=== PATIENT | male | born 1965 | race Caucasian/White ===

== ENCOUNTER 2016-10-24 08:11 | Inpatient (IN) | payer BC, OTHER ==
[~2016-10-24] VITALS: Ht 170.2 cm; Wt 77.1 kg
--- NOTE | 2016-10-24 11:26 | NUR ---
Intake Assessment; Patient is a 51 year old male, AOX4, presented to [facility] to detoxify from ETOH/Benzodiazepine. Patient is from [place] and arrived at intake office at approximately 1100. He is the primary source of information. Patient is admitted under the care of Dr. So. Patient's vital signs are as follows; BP 114/65, HR 53, Respirations 18, Spo2 95% on room air, temperature of 96.8, denies pain at this time. Patient's height is 5'7 and weight of 175 noted. Patient reported that he is allergic to Levaquin. Patient brought in home medications. Patient appears slightly nervous with flushed face. Educated patient regarding unit policies and protocols, patient verbalized understanding. Dr. So to evaluate patient at this time. Will continue with further nursing admission assessment when patient is up on the unit.
[2016-10-24] MEDS ORDERED: FAMO20TA8 PO (11:27)
[2016-10-24] MEDS ORDERED: ESCI10TA55 PO (11:27)
[2016-10-24] MEDS ORDERED: LEVO25TA9 PO (11:27)
[2016-10-24] MEDS ORDERED: CLOB15CR4 TP (11:28)
[2016-10-24] MEDS ORDERED: ADAL40PE SUBCUT (11:45)
[2016-10-24] MEDS ORDERED: DICYCLOMINE HCL 20 MG TABLET PO PRN (12:00)
[2016-10-24] MEDS ORDERED: CLONIDINE HCL 0.1 MG TABLET PO PRN (12:00)
[2016-10-24] MEDS ORDERED: ONDANSETRON ODT 4 MG TAB.RAPDIS SL PRN (12:00)
[2016-10-24] MEDS ORDERED: ONDANSETRON 4 MG/2 ML VIAL IM PRN (12:00)
[2016-10-24] MEDS ORDERED: MAG HYDROX/AL HYDROX/SIMETH 30 ML LIQUID UDC PO PRN (12:00)
[2016-10-24] MEDS ORDERED: MAGNESIUM HYDROXIDE 30 ML LIQUID UDC PO PRN (12:00)
[2016-10-24] MEDS ORDERED: THIAMINE HCL 200 MG/2 ML VIAL IM ONE (12:00)
[2016-10-24] MEDS ORDERED: LORAZEPAM 2 MG/1 ML VIAL IM PRN (12:00)
[2016-10-24] MEDS ORDERED: LOPERAMIDE HCL 2 MG CAPSULE PO PRN ×2 (12:00)
[2016-10-24] MEDS ORDERED: diphenhydrAMINE 50 MG CAPSULE PO PRN (12:00)
[2016-10-24] MEDS ORDERED: HYDROXYZINE PAMOATE 25 MG CAPSULE PO PRN (12:00)
[2016-10-24] MEDS ORDERED: LORAZEPAM 1 MG TABLET PO PRN ×2 (12:00)
[2016-10-24] MEDS ORDERED: MIRALAX 17 GM POWD.PACK PO PRN (12:00)
--- NOTE | 2016-10-24 12:00 | NUR ---
Admission note; Patient is a 51 year old male, AOX4, presented to [facility] to detoxify from ETOH/Benzodiazepine. Patient is from [place] and arrived at intake office at approximately 1100. He is the primary source of information. Patient is admitted under the care of Dr. So. Patient's vital signs are as follows; BP 114/65, HR 53, Respirations 18, Spo2 95% on room air, temperature of 96.8, denies pain at this time. Patient's height is 5'7 and weight of 175 lbs noted. Patient reported that he is allergic to Levaquin. Patient brought in home medications (Famotidine, Humira Pen, triple ATB, Levothyroxine). Patient appears nervous with flushed face with moist palms, tremors to touch. Educated patient regarding unit policies and protocols, patient verbalized understanding. Patient denies history of seizures. Discussed substance use history. Patient was diagnosed with anxiety 5 months ago and was prescribed Xanax 1mg BID, patient has been taking a total of 2mg PO daily for 5 months , last used 10/24/16 early in the morning. Patient also reported drinking ETOH on an occasional basis only, last consumed ETOH on 09/29/16 approximately half a bottle of Tequila. Discussed medical and psych history. Patient reported that he was diagnosed with Psoriasis 12 years ago, Hypothyroidism 8 months ago, gall bladder surgery 5 years ago, gastric 2 years ago, right leg surgery in the 's and anxiety 5 months ago. Patient lives with son in [place]. Patient has been to [facility]. Patient's primary care physician is Dr. Pardo and psychologist is Dr. Kaye. Skin check done with no significant findings. Dr. So made aware of patient's current condition. Patient oriented to unit by MUSICIAN [employer]. Safety measures in place. Will continue to monitor patient.
[2016-10-24 12:23] LABS: *AMPHETAMINE, URINE NEGATIVE (NEGATIVE); *BARBITURATE, URINE NEGATIVE (NEGATIVE); *CANNABINOID, URINE NEGATIVE (NEGATIVE); *COCCAINE, URINE NEGATIVE (NEGATIVE); *OPIATE, URINE NEGATIVE (NEGATIVE); *PHENCYCLIDINE SCREEN,URINE NEGATIVE (NEGATIVE)
[2016-10-24] MEDS: LORAZEPAM 1 MG TABLET PO SCH ×3 (12:38→21:00)
[2016-10-24 13:36] LABS: BASOPHILS % (AUTO) 0.9 % (0.0-2.0); EOSINOPHILS # (AUTO) 0.1 K/uL (0.0-0.7); EOSINOPHILS % (AUTO) 2.5 % (0.0-7.0); HEMATOCRIT 38.9 % (40-50); HEMOGLOBIN 13.3 G/DL (14.0-18.0); LYMPHOCYTES # (AUTO) 1.8 K/UL (0.8-4.8); LYMPHOCYTES % (AUTO) 38.8 % (20.5-51.5); MEAN CORPUSCULAR HEMOGLOBIN 32.9 UUG (27.0-31.0); MEAN CORPUSCULAR HGB CONC 34 g/dL (32.0-37.0); MEAN CORPUSCULAR VOLUME 96.2 FL (82.0-92.0); MONOCYTES # (AUTO) 0.4 K/UL (0.1-1.30); MONOCYTES % (AUTO) 8.3 % (0.0-11.0); NEUTROPHILS # (AUTO) 2.3 K/UL (1.8-8.9); NEUTROPHILS % (AUTO) 49.5 % (38.5-71.5); RED BLOOD CELL COUNT(AUTO) 4.05 MIL/UL (4.7-6.1); WHITE BLOOD COUNT (AUTO) 4.6 K/UL (4.0-11.2)
[2016-10-24 13:42] LABS: ALANINE AMINOTRANSFERASE 46 U/L (16-63); ALKALINE PHOSPHATASE 53 U/L (50-136); ASPARTATE AMINOTRANSFERASE 40 U/L (15-37); BILIRUBIN,TOTAL 0.3 mg/dL (0.2-1.0); CARBON DIOXIDE 28 mmol/L (21-32); CHLORIDE 106 mmol/L (98-107); CREATININE 0.7 mg/dL (0.6-1.3); GLUCOSE 75 mg/dL (74-106); MAGNESIUM 2.1 mg/dL (1.8-2.4); TOTAL PROTEIN, SERUM 7.8 g/dL (6.4-8.2); UREA NITROGEN, BLOOD 20 mg/dL (7-18)
[2016-10-24 13:52] LABS: THYROID STIMULATING HORMONE 1.523 mIU/mL (0.358-3.740)
[2016-10-24 13:58] LABS: PLATELET COUNT (AUTO) 168 K/UL (150-450)
[2016-10-24 14:01] LABS: ETHANOL < 3 MG/DL (0-0)
--- NOTE | 2016-10-24 14:49 | NUR ---
Clinician encouraged client to attend the 3:30 group and client responded that he would do so.
[2016-10-24 16:00] VITALS: BP 118/62
[2016-10-24] MEDS: CLOBETASOL PROPIONATE 0.05% OINT 15 GM TUBE TOP SCH (16:37)
[2016-10-24] MEDS: FAMOTIDINE 20 MG TABLET PO SCH (16:37)
[2016-10-24] MEDS ORDERED: CLOBETASOL PROPIONATE 0.05% CREAM 15 GM TUBE TP SCH (17:00)
--- NOTE | 2016-10-24 18:25 | NUR ---
End of shift note; Patient is AOX4. Patient was seen and evaluated by MD. Patient was started on a 4 day Ativan taper, no adverse reactions noted. Patient remained compliant with treatment plan. Medications were effective in reducing withdrawal symptoms. Met all needs.
--- NOTE | 2016-10-24 19:15 | NUR ---
Start of Shift Note: Patient is a 51 y/o male admitted today 10/24/16 for Benzo dependence. Patient uses Xanax 2mg daily for 5 months. Patient with medical history of Psoriasis, Hypothyroidism, Gall Bladder surgery, Gastric Bypass, Anxiety, and right left surgery in the 90s. Patient with no seizure history. Patient is on a regular diet with no known food and drug allergies. Full Code status. Patient started today on a 4-day Ativan taper. Skin noted to be intact. Last CIWA 6. No PRN medications given during day shift. Patient is alert & oriented x4. No shortness of breath noted. Respiration even & unlabored. Abdomen soft & non-distended. No nausea noted. Patient complains of 5/10 generalized muscle aches. Patient denies headache. No hallucinations noted. Bilateral hand tremors felt. Safety precautions are in place. Bed locked in lowest position. Both side rails up. Call light within pts reach. Will continue to monitor patient.
[2016-10-24 20:00] VITALS: BP 102/49
[2016-10-24 21:15] VITALS: BP 99/62
[2016-10-24] MEDS: IBUPROFEN 600 MG TABLET PO PRN (21:38)
--- NOTE | 2016-10-24 21:38 | NUR ---
PRN Motrin Patient complains of 5/10 generalized muscle aches. Facial grimacing noted. PRn motrin administered as ordered. Will reassess in 1 hour. Will continue to monitor patient.
--- NOTE | 2016-10-24 22:38 | NUR ---
PRN Reassessment Patient asleep in bed with no facial grimacing noted. Patient appears calm and comfortable. No s/s of distress noted. Safety measures in place. Will continue to monitor patient.
[2016-10-25] VITALS: BP 115/68
[2016-10-25 02:21] VITALS: BP 126/82
--- NOTE | 2016-10-25 02:25 | NUR ---
PRN Administration Patient awake at this time and complains anxiety & mild headache. Patient denies nausea at this time. Patient noted with bilateral hand tremors. Patient denies hallucinations. Vitals taken and WNL. CIWA 7 noted. PRN Ativan administered as ordered. Will reassess in 1 hour. Will continue to monitor.
[2016-10-25] MEDS: ACETAMINOPHEN 325 MG TABLET PO PRN (02:26)
--- NOTE | 2016-10-25 02:52 | NUR ---
Patient reported that he noted multiple small red bumps on his right flank. Patient denies itchiness, pain or discomfort at site. Will continue to monitor.
--- NOTE | 2016-10-25 03:25 | NUR ---
PRN Reassessment Patient verbalized relief from headache and decrease in anxiety. Bilateral hand tremors felt. CIWA 4 noted at this. Safety measures in place. Will continue to monitor patient.
[2016-10-25] MEDS: LEVOTHYROXINE SODIUM 25 MCG TABLET PO SCH (06:05)
--- NOTE | 2016-10-25 07:25 | NUR ---
End of Shift Note: Patient had an uneventful night. Patient was started on a Ativan taper yesterday. Patient was given PRN Motrin and Ativan during my shift and was effective. Pt reported that taper medication is effective in decreasing symptoms of withdrawal from CIWA 7 to 4. Pt remained stable and vitals remains WNL. Pt is compliant with medications and treatment plan. Pt was able to sleep for a total of 4 hours. Pt consumed 1200ml of fluids. Voided 5x with no bowel movement. All needs attended & met. Safety measures in place. Will endorse pt to day shift nurse.
--- NOTE | 2016-10-25 07:48 | NUR ---
BEGINNING OF SHIFT Patient endorsement report received from rotary shear cutter nurse, all pertinent information discussed. patient with admitting Dx: BZO dependence. Patient currently with ongoing 4 day Ativan taper as ordered, well tolerated, no ASE noted. patient currently on day 2 of taper. Patient admitted on the: 10/24/2016. As per rotary shear cutter patient slept for 4 hours, received PRN: Motrin and Ativan, as per rotary shear cutter medication effective. Patient with last cow score of: 5, and last ciwa score of: 3. Patient received in bed with eyes closed, respirations even and unlabored, responsive to verbal stimuli, educated patient regarding plan of care for the day and medication regimen with good verbal understanding. safety measures in place. will continue to monitor.
[2016-10-25 08:04] VITALS: BP 114/67
[2016-10-25 08:06] LABS: HEPATITIS B SURFACE AG Negative (Negative)
[2016-10-25] MEDS: DOCUSATE SODIUM 250 MG CAPSULE PO SCH (09:00)
[2016-10-25] MEDS ORDERED: TUBERCULIN,PURIF.PROT.DERIV. 5 TU/0.1 ML TEST ID ONE (09:00)
[2016-10-25] MEDS: MULTIVITAMINS,THERAPEUTIC TABLET PO SCH (09:13)
[2016-10-25] MEDS: FAMOTIDINE 20 MG TABLET PO SCH ×2 (09:13→17:00)
[2016-10-25] MEDS: LORAZEPAM 1 MG TABLET PO SCH ×4 (09:13→21:09)
[2016-10-25] MEDS: THIAMINE HCL 100 MG TABLET PO SCH (09:13)
[2016-10-25] MEDS: FOLIC ACID 1 MG TABLET PO SCH (09:13)
[2016-10-25] MEDS: CLOBETASOL PROPIONATE 0.05% OINT 15 GM TUBE TOP SCH ×2 (09:18→17:00)
[2016-10-25 12:45] VITALS: BP 110/61
[2016-10-25] MEDS: ESCITALOPRAM OXALATE 10 MG TABLET PO SCH (15:21)
[2016-10-25 17:01] VITALS: BP 125/79
--- NOTE | 2016-10-25 19:10 | NUR ---
END OF SHIFT Patient alert and oriented x4, vital signs stable during shift. Patient with admitting Dx: Opiate/Etoh Dependence. Patient with ongoing 4 day Ativan taper as ordered,w ell tolerated, no ASE noted. Patient currently on day 2 of taper, well tolerated, no ASE noted. Patients 0900 assessment patient presented with: anxiety and agitation with ciwa score of: 7; 1300 assessment patient presented with: decrease in anxiety and agitation with ciwa score of: 5; 1700 assessment patient presented with: decrease in anxiety and decrease in agitation with cow score of: 3 and ciwa score of: 3. No PRN medications were administered during shift. Patient was administered PPD to left f/a as ordered, to be read in 48 hours, procedure well tolerated. Patient encouraged adequate PO fluid intake as tolerated. Encouraged to attend group therapies/sessions to learn new coping skills to prevent relapse, denies any SI/HI. Safety measures in place. call light kept with in reach. all needs met and rendered. patient endorsed to shift leader nurse, all pertinent information discussed.
--- NOTE | 2016-10-25 19:15 | NUR ---
Start of Shift Note: Patient is a 51 y/o male admitted today 10/24/16 for Benzo dependence. Patient uses Xanax 2mg daily for 5 months. Patient with medical history of Psoriasis, Hypothyroidism, Gall Bladder surgery, Gastric Sleeve, Anxiety, and right left surgery in the 90s. Patient with no seizure history. Patient is on a regular diet with no known food and drug allergies. Full Code status. Patient is on a 4-day Ativan taper and tolerating well. Last CIWA 3. No PRN medications given during day shift. Pt has small multiple red bumps on right flank and MD is aware. Patient is alert & oriented x4. Patient is ambulatory with a steady gait. No shortness of breath noted. Respiration even & unlabored. Abdomen soft & non-distended. No nausea noted. Patient complains of mild headache. No hallucinations noted. Bilateral hand tremors felt. Safety precautions are in place. Bed locked in lowest position. Both side rails up. Call light within pts reach. Will continue to monitor patient.
[2016-10-25 20:00] VITALS: BP 123/68
[2016-10-25] MEDS: IBUPROFEN 600 MG TABLET PO PRN (21:08)
[2016-10-25] MEDS: TRAZODONE 100 MG TABLET PO SCH (21:08)
--- NOTE | 2016-10-25 21:08 | NUR ---
PRN Motrin Patient complains of mild headache. PRN Motrin administered as ordered. Will reassess in 1 hour. Will continue to monitor patient.
--- NOTE | 2016-10-25 22:08 | NUR ---
PRN Reassessment Patient verbalized relief from headache. No facial grimacing noted. Patient lying in bed and appears comfortable. No s/s of distress noted. Will continue to monitor patient.
[2016-10-26] VITALS: BP 117/68
[2016-10-26 04:00] VITALS: BP 123/91
[2016-10-26] MEDS: LEVOTHYROXINE SODIUM 25 MCG TABLET PO SCH (06:43)
--- NOTE | 2016-10-26 07:20 | NUR ---
End of Shift Note: Patient had an uneventful night. Patient is alert & oriented x4. Patient continues on Ativan taper. Patient was given PRN Motrin during my shift and was effective. Pt reported that taper medication is effective in decreasing symptoms of withdrawal. Pt remained stable and vitals remains WNL. Pt is compliant with medications and treatment plan. Pt was able to sleep for a total of 8 hours. Pt consumed 500 ml of fluids. Voided 1x with no bowel movement. All needs attended & met. Safety measures in place. Will endorse pt to day shift nurse.
--- NOTE | 2016-10-26 07:27 | NUR ---
BEGINNING OF SHIFT Patient endorsement report received from maintenance technician 2nd shift nurse, all pertinent information discussed. patient with admitting Dx: BZO dependence. Patient currently with ongoing 4 day Ativan taper as ordered, well tolerated, no ASE noted. patient currently on day 3 of taper. Patient admitted on the: 10/24/2016. As per maintenance technician 2nd shift patient slept for 6 hours, received PRN: Trazodone, as per maintenance technician 2nd shift medication effective. Patient with last and last ciwa score of: 3. Patient received awake, alert and oriented x4, educated patient regarding plan of care for the day and medication regimen with good verbal understanding. safety measures in place. will continue to monitor.
[2016-10-26 08:45] VITALS: BP 115/56
[2016-10-26] MEDS: THIAMINE HCL 100 MG TABLET PO SCH (08:53)
[2016-10-26] MEDS: LORAZEPAM 1 MG TABLET PO SCH ×3 (08:53→20:34)
[2016-10-26] MEDS: MULTIVITAMINS,THERAPEUTIC TABLET PO SCH (08:53)
[2016-10-26] MEDS: CLOBETASOL PROPIONATE 0.05% OINT 15 GM TUBE TOP SCH ×2 (08:53→16:55)
[2016-10-26] MEDS: FAMOTIDINE 20 MG TABLET PO SCH ×2 (08:53→16:55)
[2016-10-26] MEDS: DOCUSATE SODIUM 250 MG CAPSULE PO SCH (08:53)
[2016-10-26] MEDS: GABAPENTIN 300 MG CAPSULE PO SCH ×3 (08:53→20:34)
[2016-10-26] MEDS: ESCITALOPRAM OXALATE 10 MG TABLET PO SCH (08:53)
[2016-10-26] MEDS: FOLIC ACID 1 MG TABLET PO SCH (08:53)
[2016-10-26 13:55] VITALS: BP 112/55
[2016-10-26 17:48] VITALS: BP 117/71
--- NOTE | 2016-10-26 19:00 | NUR ---
START OF SHIFT NOTE : Patient is 51 years old male , with admitting Dx: BZO dependence. Patient currently with ongoing 4 day Ativan taper as ordered, well tolerated, no ASE noted. Patient admitted on the: 10/24/2016. Patient with last and last ciwa score of: 2 at 16:00. Patient received awake, alert and oriented x4, educated patient regarding plan of care for the day and medication regimen with good verbal understanding. Safety measures in place : bed on lowest position with side rails x2 up for safety, call light within reach. Will continue to monitor closely and offer help.
--- NOTE | 2016-10-26 19:00 | NUR ---
END OF SHIFT Patient alert and oriented x4, vital signs stable during shift. Patient with admitting Dx: Opiate/Etoh Dependence. Patient with ongoing 4 day Ativan taper as ordered,w ell tolerated, no ASE noted. Patient currently on day 3 of taper, well tolerated, no ASE noted. Patients 0900 assessment patient presented with: tremors that can be felt but not seen, barely sweating, mild anxiety and mild agitation with ciwa score of: 5; 1300 assessment patient presented with: tremors that can be felt, barely sweating, mild anxiety and mild agitation with ciwa score of: 5; 1700 assessment patient presented with: mild anxiety and tremors that can be felt with ciwa score of: 2. Detox medication effective at reducing withdrawal symptoms. No PRN medications were administered during shift. Patient encouraged adequate PO fluid intake as tolerated. Encouraged to attend group therapies/sessions to learn new coping skills to prevent relapse, denies any SI/HI. Safety measures in place. call light kept with in reach. all needs met and rendered. patient endorsed to overnight associate nurse, all pertinent information discussed.
[2016-10-26 20:00] VITALS: BP 124/77
[2016-10-26] MEDS: TRAZODONE 100 MG TABLET PO SCH (20:34)
--- NOTE | 2016-10-27 03:00 | NUR ---
PRN MOTRIN Pt. complains of headache pain 11/03. PRN MOTRIN given as ordered. All safety measures in place per hospital policy. Bed in lowest position, side rails up x2, call-light within reach. Will continue to monitor and provide support.
[2016-10-27] MEDS: IBUPROFEN 600 MG TABLET PO PRN ×2 (03:50→09:24)
--- NOTE | 2016-10-27 03:55 | NUR ---
REASSESSMENT ESSENCE Pt. feels better, pain level decreased to 2/10, pt. is ready to sleep. All safety measures in place per hospital policy. Bed in lowest position, side rails up x2, call-light within reach. Will continue to monitor and provide support.
[2016-10-27 04:00] VITALS: BP 105/70
--- NOTE | 2016-10-27 06:43 | NUR ---
END OF SHIFT NOTE : Patient is 51 years old male , with admitting Dx: BZO dependence. Patient currently with ongoing 4 day Ativan taper as ordered, well tolerated, no ASE noted. Patient admitted on the: 10/24/2016. Patient with last and last ciwa score of: 2 at 16:00. Patient received awake, alert and oriented x4, educated patient regarding plan of care for the day and medication regimen with good verbal understanding. Pt remains compliant with the treatment plan. PRN MOTRIN given during my shift. HR is around 50/min as before. RR=16, even and unlabored, lungs clear upon auscultation, abdomen soft and non- distended. Pt denies nausea, vomiting and diarrhea. LAST CIWA= 2 at 0400 , CFXHNI=241 ml, voided x 2, slept 6 hours.Safety measures in place : bed on lowest position with side rails x2 up for safety, call light within reach. Will continue to monitor closely and offer help.
[2016-10-27] MEDS: LEVOTHYROXINE SODIUM 25 MCG TABLET PO SCH (07:00)
[2016-10-27 08:00] VITALS: BP 116/75
--- NOTE | 2016-10-27 08:15 | NUR ---
START OF SHIFT: RECEIVED PT A/O X 4. HE PRESENTS WITH ANXIOUS MOOD AND RESTRICTED AFFECT. HE C/O ANXIETY AND RESTLESSNESS. ATIVAN TAPER IN PROGRESS. CIWA 2. HE STATES HE IS ATTENDING GROUPS AND ACTIVITIES. ENCOURAGED INCREASED FLUIDS TO ASSIST IN FACILITATING DETOX PROCESS. WILL CONTINUE TO MONITOR AND OFFER SUPPORT.
[2016-10-27] MEDS: DOCUSATE SODIUM 250 MG CAPSULE PO SCH (09:00)
[2016-10-27] MEDS: GABAPENTIN 300 MG CAPSULE PO SCH ×3 (09:22→20:52)
[2016-10-27] MEDS: FAMOTIDINE 20 MG TABLET PO SCH ×2 (09:22→17:08)
[2016-10-27] MEDS: FOLIC ACID 1 MG TABLET PO SCH (09:23)
[2016-10-27] MEDS: MULTIVITAMINS,THERAPEUTIC TABLET PO SCH (09:23)
[2016-10-27] MEDS: LORAZEPAM 1 MG TABLET PO SCH ×2 (09:24→20:52)
[2016-10-27] MEDS: THIAMINE HCL 100 MG TABLET PO SCH (09:24)
[2016-10-27] MEDS: ESCITALOPRAM OXALATE 10 MG TABLET PO SCH (09:24)
[2016-10-27] MEDS: CLOBETASOL PROPIONATE 0.05% OINT 15 GM TUBE TOP SCH ×2 (09:26→17:00)
[2016-10-27 12:00] VITALS: BP 130/75
[2016-10-27 16:00] VITALS: BP 108/56
--- NOTE | 2016-10-27 18:56 | NUR ---
END OF SHIFT: PT CONTINUES ON ATIVAN TAPER. HE C/O ANXIETY AND RESTLESSNESS THIS AM BUT STATES THE DETOX MEDS ARE EFFECTIVE.LAST CIWA 1. PT ATTENDED ACTIVITIES AND GROUPS. MOTRIN GIVEN THIS AM FOR REPORTED H/A 5/10 AND EFFECTIVE PT REPORTED THAT HIS PAIN WAS 0/10 AFTER 1 HOUR. PT COMPLIANT WITH INCREASED FLUIDS. WILL PASS SHIFT REPORT TO ONCOMING NIGHT NURSE.
--- NOTE | 2016-10-27 19:30 | NUR ---
START OF SHIFT NOTE : Patient is 51 years old male , with admitting Dx: BZO dependence. Patient currently with ongoing 4 day Ativan taper as ordered, well tolerated, no ASE noted. Patient admitted on the: 10/24/2016. Patient with last and last CIWA score of 1 at 19:30. Patient received awake, alert and oriented x4, educated patient regarding plan of care for the day and medication regimen with good verbal understanding. Safety measures in place : bed on lowest position with side rails x2 up for safety, call light within reach. Will continue to monitor closely and offer help.
[2016-10-27 20:00] VITALS: BP 128/74
[2016-10-27] MEDS: TRAZODONE 100 MG TABLET PO SCH (20:52)
[2016-10-28] MEDS: IBUPROFEN 600 MG TABLET PO PRN (03:50)
--- NOTE | 2016-10-28 06:48 | NUR ---
END OF SHIFT NOTE : Patient is 51 years old male , with admitting Dx: BZO dependence. Patient currently with ongoing 4 day Ativan taper as ordered, well tolerated, no ASE noted. Patient admitted on the: 10/24/2016. Patient alert and oriented x4, educated patient regarding plan of care for the day and medication regimen with good verbal understanding. Pt remains compliant with the treatment plan. PRN MOTRIN given during my shift. V/S remain WNL. RR=16, even and unlabored, lungs clear upon auscultation, abdomen soft and non- distended. Pt denies nausea, vomiting and diarrhea. LAST CIWA= 1 at 0400 , [id number]=[id number] ml, voided x 2, slept 4 hours. Safety measures in place : bed on lowest position with side rails x2 up for safety, call light within reach. Will continue to monitor closely and offer help.
[2016-10-28] MEDS: LEVOTHYROXINE SODIUM 25 MCG TABLET PO SCH (07:00)
[2016-10-28 08:00] VITALS: BP 118/70
[2016-10-28] MEDS: MULTIVITAMINS,THERAPEUTIC TABLET PO SCH (08:20)
[2016-10-28] MEDS: GABAPENTIN 300 MG CAPSULE PO SCH ×3 (08:20→21:00)
[2016-10-28] MEDS: DOCUSATE SODIUM 250 MG CAPSULE PO SCH (08:20)
--- NOTE | 2016-10-28 08:20 | NUR ---
START OF SHIFT: RECEIVED PT A/O X 4. HE PRESENTS WITH ANXIOUS MOOD . HE STATES HE HAD RESTLESS SLEEP LAST NIGHT. CIWA 1.ATIVAN TAPER COMPLETED. HE STATES HE IS ATTENDING GROUPS AND ACTIVITIES. WILL CONTINUE TO MONITOR AND OFFER SUPPORT.
[2016-10-28] MEDS: ESCITALOPRAM OXALATE 10 MG TABLET PO SCH (08:21)
[2016-10-28] MEDS: THIAMINE HCL 100 MG TABLET PO SCH (08:21)
[2016-10-28] MEDS: FOLIC ACID 1 MG TABLET PO SCH (08:21)
[2016-10-28] MEDS: CLOBETASOL PROPIONATE 0.05% OINT 15 GM TUBE TOP SCH ×2 (08:21→16:35)
[2016-10-28] MEDS: FAMOTIDINE 20 MG TABLET PO SCH ×2 (08:21→16:34)
[2016-10-28 12:00] VITALS: BP 114/74
--- NOTE | 2016-10-28 12:30 | NUR ---
PT REPORTS ANXIETY AND RESTLESSNESS.PRN VISTARIL GIVEN ORDERED FOR ANXIETY. WILL MONITOR EFFECTIVENESS.
[2016-10-28] MEDS ORDERED: TRAZ-147 PO (12:49)
[2016-10-28] MEDS ORDERED: HYDR-3895 PO (12:49)
[2016-10-28] MEDS ORDERED: GABA-534 PO (12:49)
[2016-10-28] MEDS ORDERED: IBUP-1955 PO (12:49)
--- NOTE | 2016-10-28 13:30 | NUR ---
PRN VISTARIL MILDLY EFFECTIVE. PT STATES HE FEELS A LITTLE BETTER.
[2016-10-28 14:20] LABS: *AMPHETAMINE, URINE NEGATIVE (NEGATIVE); *BARBITURATE, URINE NEGATIVE (NEGATIVE); *CANNABINOID, URINE NEGATIVE (NEGATIVE); *COCCAINE, URINE NEGATIVE (NEGATIVE); *OPIATE, URINE NEGATIVE (NEGATIVE); *PHENCYCLIDINE SCREEN,URINE NEGATIVE (NEGATIVE)
[2016-10-28 16:00] VITALS: BP 118/70
[2016-10-28] MEDS: HYDROXYZINE PAMOATE 25 MG CAPSULE PO PRN ×2 (16:34→21:04)
--- NOTE | 2016-10-28 16:40 | NUR ---
PT REPORTS ANXIETY AND IS REQUESTING VISTARIL. VERBAL ORDER FROM MD TO CHANGE VISTARIL TO Q 4 HRS PRN FOR ANXIETY. ADMINISTERED ORDERED. WILL MONITOR EFFECTIVENESS.
--- NOTE | 2016-10-28 17:38 | NUR ---
PT STATES THE VISTARIL WAS MILDLY EFFECTIVE. WILL CONTINUE TO MONITOR AND OFFER SUPPORT.
--- NOTE | 2016-10-28 18:51 | NUR ---
END OF SHIFT: PT COMPLETED ATIVAN TAPER. HE C/O ANXIETY AND RESTLESSNESS TODAY AND VISTARIL PRN GIVEN X 2 AND ,MILDLY EFFECTIVE. NEW ORDER TO GIVE VISTARIL Q 4 PRN. LAST CIWA 1. PT ATTENDED ACTIVITIES AND GROUPS.DISCHARGE PLANNING IN PROGRESS FOR 10/29. UDS COLLECTED PT IS COMPLIANT WITH ACTIVITIES AND GROUPS. WILL PASS SHIFT REPORT TO ONCOMING NIGHT NURSE.
[2016-10-28 20:00] VITALS: BP 103/56
--- NOTE | 2016-10-28 20:00 | NUR ---
START OF SHIFT NOTE PATIENT ALERT AND ORIENTED X 4. PATIENT REPORTS ANXIETY, NAUSEATED BUT NO EMESIS, STUFFY NOSE, GENERALIZED BODY ACHES AND TOOTHACHE 01/03. RECEIVED REPORT FROM DAY SHIFT NURSE. PATIENT IS A 36 YEAR OLD FEMALE, ADMITTED FROM OPIATE/BENZO DEPENDENCE. PATIENT IS ON 1ST DAY OF HER 5 DAY ATIVAN AND 5 DAY SUBUTEX TAPER. PATIENT IS FULL CODE, REGULAR DIET AND ALLERGIC TO [place]. PATIENTS DRUG OF CHOICE ARE HEROIN 1/2 -3 GRAMS DAILY FOR A MONTH, XANAX 1-4 MG DAILY ON/OFF FOR 6 YEARS AND METH 1-1/2 GRAM DAILY FOR 2 MONTHS. ON FALL/SEIZURE PRECAUTION. ON ADMISSION, PATIENT HAS POSSIBLE ABSCESS ON RIGHT ARM AC. PATIENT DID NOT REQUIRE ANY PRN MEDICATION DURING THE DAY. VS WNL. LAST CIWA 7 AND COWS 7. SAFETY MEASURES IN PLACE. CALL LIGHT IN REACH. WILL CONTINUE TO MONITOR.
--- NOTE | 2016-10-28 21:00 | NUR ---
REFUSED NEURONTIN PATIENT REFUSED TO TAKE 2100 NEURONTIN. EDUCATE PATIENT ON RISKS/BENEFITS. WILL CONTINUE TO MONITOR
[2016-10-28] MEDS: TRAZODONE 100 MG TABLET PO SCH (21:04)
--- NOTE | 2016-10-28 21:04 | NUR ---
PRN VISTARIL ADMINISTRATION PATIENT C/O ANXIETY. PRN VISTARIL GIVEN. WILL MONITOR FOR EFFECTIVENESS
--- NOTE | 2016-10-28 22:04 | NUR ---
LARISA BABCOCKTARIL RE-ASSESSMENT PATIENT STATES VISTARIL HELPFUL FOR HIS ANXIETY. WILL CONTINUE TO MONITOR.
--- NOTE | 2016-10-29 | NUR ---
CIWA/VS PATIENT IN BED WITH EYES CLOSED. RESPIRATION EVEN AND UNLABORED. RR 15. CIWA DEFERRED D/T PATIENT ASLEEP. SAFETY MEASURES IN PLACE. CALL LIGHT IN REACH. WILL CONTINUE TO MONITOR.
--- NOTE | 2016-10-29 04:00 | NUR ---
CIWA/VS PATIENT IN BED WITH EYES CLOSED. RESPIRATION EVEN AND UNLABORED. RR 16. CIWA DEFERRED D/T PATIENT ASLEEP. SAFETY MEASURES IN PLACE. CALL LIGHT IN REACH. WILL CONTINUE TO MONITOR.
[2016-10-29] MEDS: HYDROXYZINE PAMOATE 25 MG CAPSULE PO PRN ×2 (04:34→08:25)
[2016-10-29] MEDS: ACETAMINOPHEN 325 MG TABLET PO PRN (04:34)
--- NOTE | 2016-10-29 04:34 | NUR ---
PRN VISTARIL AND TYLENOL ADMINISTRATION PATIENT C/O HEADACHE / AND ANXIETY. PRN VISTARIL/TYLENOL GIVEN. WILL MONITOR F0R EFFECTIVENESS
--- NOTE | 2016-10-29 05:34 | NUR ---
PRN VISTARIL/TYLENOL RE-ASSESSMENT PATIENT IN ROOM, WATCHING TV. PATIENT STATES VISTARIL AND TYLENOL HELPFUL. PAIN LEVEL 2/10, TOLERABLE. WILL CONTINUE TO MONITOR.
[2016-10-29] MEDS: LEVOTHYROXINE SODIUM 25 MCG TABLET PO SCH (06:33)
--- NOTE | 2016-10-29 07:20 | NUR ---
END OF SHIFT NOTE PATIENT ALERT AND ORIENTED X4. RESPIRATION EVEN AND UNLABORED. PATIENT REPORTS ANXIETY. NO N/V. DENIES ANY PAIN. RECEIVED REPORT FROM DAY SHIFT NURSE. PATIENT IS A 51 YEAR OLD MALE, ADMITTED FOR BENZO DEPENDENCE. PATIENT COMPLETED 4 DAY ATIVAN TAPER., TOLERATED WELL. N0 ADVERSE EFFECT. PATIENT IS MEDICALLY CLEARED TO BE DISCHARGED TODAY. PATIENT IS FULL CODE, REGULAR DIET AND ALLERGIC TO [place]EVAQUIN. ON ADMISSION , PATIENT IS TAKING XANAX TOTAL 2 MG DAILY FOR 5 MONTHS AND DRINKS OCCASIONALLY . PATIENT HAS BEEN SOBER BUT HE RELAPSED SEPTEMBER 29. NO SEIZURE HISTORY. PATIENT IS ON FALL/SEIZURE PRECAUTION. SKIN INTACT. PATIENT WAS GIVEN PRN VISTARIL X2 , AT 2104 AND 0434 AND TYLENOL AT 0434. . LAST CIWA1 . SAFETY MEASURES IN PLACE. CALL LIGHT IN REACH. WILL CONTINUE TO MONITOR. SLEPT 6 HOURS. FLUID INTAKE 1,820 ML VOIDED X 3. NO BM. PATIENT REFUSED 2100 NEURONTIN . EDUCATE ON RISKS/BENEFITS.
--- NOTE | 2016-10-29 07:35 | NUR ---
START OF SHIFT Received report from filteration operator nurse. 51 year old male patient admitted on 10/24/16 for Xanax and ETOH dependence. Pt has completed 4 day modified Ativan taper and is medically cleared for discharge. A/O x4, V/S WNL, no acute distress or discomfort. S/S of withdrawals have been managed well with ordered medications. Reports primary medical hx of psoriasis, hypothyroidism, gallbladder surgery, gastric bypass, anxiety, and leg surgery. Allergies to Levofloxacin. Pt remains safe throughout shift. Pt received PRN Vistaril x2, and PRN Tylenol, effective. Slept for 6 hours. Most recent CIWA is 1. Ambulates with a steady gait, no assistance needed. Pt socializes with peers and is awake and oriented at this time, aware of discharge. Safety locations are in place, will continue to monitor.
[2016-10-29 08:08] VITALS: BP 109/66
[2016-10-29] MEDS: MULTIVITAMINS,THERAPEUTIC TABLET PO SCH (08:24)
[2016-10-29] MEDS: THIAMINE HCL 100 MG TABLET PO SCH (08:24)
[2016-10-29] MEDS: ESCITALOPRAM OXALATE 10 MG TABLET PO SCH (08:24)
[2016-10-29] MEDS: FAMOTIDINE 20 MG TABLET PO SCH (08:24)
[2016-10-29] MEDS: FOLIC ACID 1 MG TABLET PO SCH (08:24)
[2016-10-29] MEDS: CLOBETASOL PROPIONATE 0.05% OINT 15 GM TUBE TOP SCH (08:24)
[2016-10-29] MEDS: GABAPENTIN 300 MG CAPSULE PO SCH (08:27)
[2016-10-29] MEDS: DOCUSATE SODIUM 250 MG CAPSULE PO SCH (08:27)
--- NOTE | 2016-10-29 09:49 | NUR ---
D/C NOTE Pt is A/O x4. Denies s/s of acute withdrawal. PRN Vistaril administered and effective per patient. CIWA is 1. Pt is medically cleared for d/c. V/S are stable and WNL. All belongings including home meds and prescriptions are in pt belonging bag. Denies SI/HI or hallucinations. Pt is being accompanied with MANAGER EXCHANGE to be transported to rehab via private wheelchair van driver at this time.
[2016-11-06] MEDS ORDERED: HUMIRA 40 MG/0.8 ML SQ SCH (09:00)
== END 2016-10-29 09:25 | disposition other institution (70) | DRG 895 ==
LOC: SRC 10:50
PROVIDERS: ADMIT Internal Medicine; ATTEND Internal Medicine
PROC: HZ41ZZZ Group Counseling for Substance Abuse Treatment, Behavioral (ICD-10-PCS; principal; 2016-10-24)
PROC: HZ2ZZZZ Detoxification Services for Substance Abuse Treatment (ICD-10-PCS; principal; 2016-10-24)
PROC: HZ31ZZZ Individual Counseling for Substance Abuse Treatment, Behavioral (ICD-10-PCS; 2016-10-25)
DX: F13.230 Sedative, hypnotic or anxiolytic dependence with withdrawal, uncomplicated (principal); Z90.49 Acquired absence of other specified parts of digestive tract; Z98.84 Bariatric surgery status; K21.9 Gastro-esophageal reflux disease without esophagitis; Z79.899 Other long term (current) drug therapy; G89.29 Other chronic pain; M79.1 Myalgia; F41.9 Anxiety disorder, unspecified; F10.20 Alcohol dependence, uncomplicated; Y90.9 Presence of alcohol in blood, level not specified; E03.9 Hypothyroidism, unspecified; Z65.3 Problems related to other legal circumstances; F32.9 Major depressive disorder, single episode, unspecified
CPT/HCPCS: 36415; 70030-TC; 80307; 80346; 83735; 84443; 85025; 86580; 86592; 86705; 86803; 87340; 87806; G0480; J3411

== ENCOUNTER 2016-12-10 09:41 | Inpatient (IN) | payer BC, OTHER ==
[~2016-12-10] VITALS: Ht 170.2 cm; Wt 77.1 kg
[~2016-12-10 09:41] MED LIST: ADAL40PE SUBCUT; CLOB15CR4 TP; ESCI10TA55 PO; FAMO20TA8 PO; GABA-534 PO; HYDR-3895 PO; IBUP-1955 PO; LEVO25TA9 PO; TRAZ-147 PO
--- NOTE | 2016-12-10 14:40 | NUR ---
INTAKE ASSESSMENT RECEIVED PATIENT IN INTAKE AOX4. PATIENT IS STABLE AND AMBULATORY. VITALS WNL. PATIENT REPORTS ALLERGIES TO LEVOFLOXACIN. PT REPORTS NO SEIZURE HX. PATIENT REPORTS NOT BRINGING ANY HOME MEDICATIONS. EXPLAINED UNIT POLICIES AND PROTOCOLS AND PT VERBALIZED UNDERSTANDING. WILL ADMIT PT UPON ARRIVAL TO THIRD FLOOR.
[2016-12-10] MEDS ORDERED: AZEL137S7 BNOSTRILS (15:16)
[2016-12-10] MEDS ORDERED: CLOB15OI3 TP (15:16)
[2016-12-10] MEDS ORDERED: MUPI22OI2 TP (15:16)
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
[2016-12-10 15:40] LABS: *AMPHETAMINE, URINE NEGATIVE (NEGATIVE); *BARBITURATE, URINE NEGATIVE (NEGATIVE); *CANNABINOID, URINE NEGATIVE (NEGATIVE); *COCCAINE, URINE NEGATIVE (NEGATIVE); *OPIATE, URINE NEGATIVE (NEGATIVE); *PHENCYCLIDINE SCREEN,URINE NEGATIVE (NEGATIVE)
[2016-12-10] MEDS ORDERED: THIAMINE HCL 200 MG/2 ML VIAL IM ONE (16:30)
[2016-12-10] MEDS ORDERED: HYDROXYZINE PAMOATE 25 MG CAPSULE PO PRN (16:30)
[2016-12-10] MEDS ORDERED: MIRALAX 17 GM POWD.PACK PO PRN (16:30)
[2016-12-10] MEDS ORDERED: MAG HYDROX/AL HYDROX/SIMETH 30 ML LIQUID UDC PO PRN (16:30)
[2016-12-10] MEDS ORDERED: DICYCLOMINE HCL 20 MG TABLET PO PRN (16:30)
[2016-12-10] MEDS ORDERED: CLONIDINE HCL 0.1 MG TABLET PO PRN (16:30)
[2016-12-10] MEDS ORDERED: ONDANSETRON ODT 4 MG TAB.RAPDIS SL PRN (16:30)
[2016-12-10] MEDS ORDERED: LORAZEPAM 1 MG TABLET PO PRN ×2 (16:30)
[2016-12-10] MEDS ORDERED: ONDANSETRON 4 MG/2 ML VIAL IM PRN (16:30)
[2016-12-10] MEDS ORDERED: LOPERAMIDE HCL 2 MG CAPSULE PO PRN ×2 (16:30)
[2016-12-10] MEDS ORDERED: LORAZEPAM 2 MG/1 ML VIAL IM PRN (16:30)
[2016-12-10] MEDS ORDERED: diphenhydrAMINE 50 MG CAPSULE PO PRN (16:30)
[2016-12-10] MEDS ORDERED: MAGNESIUM HYDROXIDE 30 ML LIQUID UDC PO PRN (16:30)
[2016-12-10 16:45] LABS: BASOPHILS % (AUTO) 0.3 % (0.0-2.0); EOSINOPHILS # (AUTO) 0.2 K/uL (0.0-0.7); HEMATOCRIT 41.3 % (40-50); HEMOGLOBIN 13.8 G/DL (14.0-18.0); LYMPHOCYTES # (AUTO) 1.3 K/UL (0.8-4.8); LYMPHOCYTES % (AUTO) 22.1 % (20.5-51.5); MEAN CORPUSCULAR HEMOGLOBIN 30.9 UUG (27.0-31.0); MEAN CORPUSCULAR HGB CONC 34 g/dL (32.0-37.0); MEAN CORPUSCULAR VOLUME 92.3 FL (82.0-92.0); MONOCYTES # (AUTO) 0.4 K/UL (0.1-1.30); MONOCYTES % (AUTO) 6.8 % (0.0-11.0); NEUTROPHILS % (AUTO) 67.8 % (38.5-71.5); PLATELET COUNT (AUTO) 94 K/UL (150-450); RED BLOOD CELL COUNT(AUTO) 4.48 MIL/UL (4.7-6.1); WHITE BLOOD COUNT (AUTO) 5.9 K/UL (4.0-11.2)
[2016-12-10] MEDS ORDERED: TRAZODONE 50 MG TABLET PO PRN (16:45)
[2016-12-10 16:58] LABS: ALANINE AMINOTRANSFERASE 31 U/L (16-63); ALKALINE PHOSPHATASE 105 U/L (50-136); ASPARTATE AMINOTRANSFERASE 37 U/L (15-37); BILIRUBIN,TOTAL 1.3 mg/dL (0.2-1.0); CARBON DIOXIDE 27 mmol/L (21-32); CHLORIDE 98 mmol/L (98-107); CREATININE 0.8 mg/dL (0.6-1.3); ETHANOL < 3 MG/DL (0-0); GLUCOSE 114 mg/dL (74-106); MAGNESIUM 1.9 mg/dL (1.8-2.4); POTASSIUM 4.4 mmol/L (3.5-5.1); TOTAL PROTEIN, SERUM 8.2 g/dL (6.4-8.2); UREA NITROGEN, BLOOD 11 mg/dL (7-18)
[2016-12-10 17:00] VITALS: BP 142/95
[2016-12-10] MEDS ORDERED: PATIENT MAY USE OWN MED- MD OK PO SCH (17:00)
[2016-12-10] MEDS: IBUPROFEN 600 MG TABLET PO PRN (17:01)
[2016-12-10] MEDS: LORAZEPAM 1 MG TABLET PO SCH ×2 (17:01→20:49)
--- NOTE | 2016-12-10 17:04 | NUR ---
PRN MEDICATIONS MOTRIN GIVEN FOR HEADACHE 6/10 ON PAIN SCALE. WILL REASSESS
[2016-12-10 17:39] LABS: EOSINOPHILS % (MANUAL) 2 % (0-8); LYMPHOCYTES % (MANUAL) 24 % (20-40); MONOCYTES % (MANUAL) 10 % (2-10); NEUTROPHILS % (MANUAL) 64 % (42-75)
--- NOTE | 2016-12-10 18:00 | NUR ---
PRN REASSESSMENT Patient reports no relief in symptoms. Notified MD. New orders pending.
--- NOTE | 2016-12-10 18:35 | NUR ---
END OF SHIFT NOTE Admitted patient this afternoon. Patient admitted for ETOH dependence. Patient given ordered Ativan for CIWA of 9. MRSA swab completed and sent to lab. PRN Motrin given for headache with effectiveness. All needs have been met. Safety measures in place.Side rails up x2 and padded. Will endorse to night nurse.
[2016-12-10] MEDS: KETOROLAC TROMETHAMINE 30 MG INJ IM PRN (18:54)
--- NOTE | 2016-12-10 18:56 | NUR ---
PRN MEDICATION TORADOL IM GIVEN FOR GLUTEAL AND HEAD PAIN 02/03 WILL ENDORSE TO REASSESS
--- NOTE | 2016-12-10 19:30 | NUR ---
START OF SHIFT Patient is a 51 year old male admitted to [facility] on 12/10/16 for etoh dependence.A/O X 4,FULL CODE,regular diet,allergic to Levofloxacin. Hx anxiety, depression, hypothyroidism, and psoriasis.Received in stable condition. All needs have been met. All safety measures in place per hospital policy. Bed locked and in lowest position, side rails up x2 and padded, call light within reach. Will continue to monitor.
[2016-12-10 20:00] VITALS: BP 145/87
--- NOTE | 2016-12-10 20:00 | NUR ---
PRN F/U PT VERBALIZES SOME RELIEF FROM PAIN AFTER PRN TORADOL IM WAS GIVEN.PAIN LEVEL IS 5/10.PT WAS OFFERED PO PRN MEDICATIONS BUT HE REFUSED TO TAKE ANY.CONCERNED ABOUT HIS NEXT "PAIN SHOT".PT WAS INFORMED THAT THE INJECTION IS ORDERED FOR EVERY 6 HOURS.PT VERBALIZED UNDERSTANDING.SAID "I CAN WAIT".WILL CONTINUE TO MONITOR.
[2016-12-10] MEDS: GABAPENTIN 300 MG CAPSULE PO SCH (20:49)
[2016-12-10] MEDS: FAMOTIDINE 20 MG TABLET PO SCH (20:49)
[2016-12-10] MEDS ORDERED: TRAZODONE 100 MG TABLET PO PRN (21:15)
--- NOTE | 2016-12-10 21:20 | NUR ---
PT C/O INSOMNIA.HE REFUSED TO TAKE TRAZODONE 50 MG PO ORDERED.SAID "I TAKE 100 MG".DR ROWE WAS NOTIFIED.TRAZODONE 100 MG PO GIVEN ORDERED.WILL MONITOR.
[2016-12-10] MEDS ORDERED: TRAZODONE 100 MG TABLET ONE (21:28)
--- NOTE | 2016-12-10 22:20 | NUR ---
PRN F/U TRAZODONE EFFECTIVE.PT IS RESTING IN BED WITH EYES CLOSED,APPEARS TO BE ASLEEP.BREATHING IS EVEN AND NON LABORED.NO S/S OF DISTRESS NOTED.
[2016-12-11] VITALS: BP 123/87
[2016-12-11] MEDS: KETOROLAC TROMETHAMINE 30 MG INJ IM PRN ×4 (03:32→21:16)
--- NOTE | 2016-12-11 03:35 | NUR ---
PRN TORADOL IM GIVEN ORDERED FOR C/O BACK,PAIN LEVEL IS 9/10.WILL MONITOR.
[2016-12-11 04:00] VITALS: BP 126/84
--- NOTE | 2016-12-11 04:35 | NUR ---
PRN F/U PT VERBALIZES A DECREASE IN PAIN LEVEL.BACK PAIN REDUCED TO 2/10.
[2016-12-11] MEDS: ACETAMINOPHEN 325 MG TABLET PO PRN (05:04)
[2016-12-11] MEDS: LEVOTHYROXINE SODIUM 25 MCG TABLET PO SCH (06:18)
--- NOTE | 2016-12-11 06:40 | NUR ---
END OF SHIFT Patient is a 51 year old male admitted to [facility] on 12/10/16 for etoh dependence.A/O X 4,FULL CODE,regular diet,allergic to Levofloxacin. Hx anxiety, depression, hypothyroidism, and psoriasis.PRN Toradol IM given, and PRN Trazodone given for insomnia with good effect .Pt slept 6 hrs,fluid intake was 500 mls,voided x 2. All needs have been met. All safety measures in place per hospital policy. Bed locked and in lowest position, side rails up x2 and padded, call light within reach.Will endorse care to day shift nurse.
--- NOTE | 2016-12-11 07:00 | NUR ---
Start of Shift Notes: Received patient in his room. Awake, alert and verbally responsive. Able to make needs known. Oriented x 4. Respirations even and unlabored. NO SOB noted. Skin warm and moist to touch. Appears with mild anxiety, agitation and facial flushing. Gross tremors also noted to BUE. Abdomen soft and non-distended with (+) BS in all 4 quadrants. No complains of N/V/D or constipation noted. Bladder non-distended. No complains of dysuria. Ambulatory ad sarahi with steady gait. Patient is a 51 year old female admitted for ETOH dependence who was placed on a 5-day Ativan taper as ordered. No adverse reactions noted. Has past medical hx of anxiety, depression, psoriasis and hypothyroidism. Prior to admission, patient was using pack of beer x 5 days. Educated patient on his current plan of care for the day and his medication regimen. Encouraged oral fluid intake and encouraged group participation to learn new skills to prevent relapse. Will continue to monitor closely. Slept for 6 hours.
[2016-12-11 07:07] LABS: HEPATITIS B SURFACE AG Negative (Negative)
[2016-12-11 08:00] VITALS: BP 124/79
[2016-12-11] MEDS: MULTIVITAMINS,THERAPEUTIC TABLET PO SCH (08:55)
[2016-12-11] MEDS: GABAPENTIN 300 MG CAPSULE PO SCH ×3 (08:55→20:22)
[2016-12-11] MEDS: FOLIC ACID 1 MG TABLET PO SCH (08:55)
[2016-12-11] MEDS: THIAMINE HCL 100 MG TABLET PO SCH (08:55)
[2016-12-11] MEDS: FAMOTIDINE 20 MG TABLET PO SCH ×2 (08:55→20:22)
[2016-12-11] MEDS: LORAZEPAM 1 MG TABLET PO SCH ×3 (08:56→20:21)
[2016-12-11] MEDS ORDERED: TUBERCULIN,PURIF.PROT.DERIV. 5 TU/0.1 ML TEST ID ONE (09:00)
--- NOTE | 2016-12-11 09:00 | NUR ---
Toradol 30 mg IM given: Patient noted with complain of 8/10 generalized muscle pain. Non-pharmacological interventions provided but ineffective. Medicated patient with Toradol 30 mg IM as ordered. Will monitor for effectiveness.
[2016-12-11] MEDS: ESCITALOPRAM OXALATE 10 MG TABLET PO SCH (09:24)
--- NOTE | 2016-12-11 09:30 | NUR ---
Re-assessment: Per patient, PRN Toradol was effective in reducing patient's pain. PL 3.
[2016-12-11 12:00] VITALS: BP 121/75
--- NOTE | 2016-12-11 14:56 | NUR ---
Toradol 30 mg IM given: Patient noted with complain of 6/10 generalized muscle pain. Non-pharmacological interventions provided but ineffective. Medicated patient with Toradol 30 mg IM as ordered. Will monitor for effectiveness.
--- NOTE | 2016-12-11 15:26 | NUR ---
Re-assessment: Per patient, PRN Toradol was effective in reducing his pain. PL 08/03.
[2016-12-11 16:00] VITALS: BP 126/81
--- NOTE | 2016-12-11 19:03 | NUR ---
End of Shift Notes: Patient continues to be on 5-day Ativan taper as ordered. No adverse reactions noted. No delayed reactions noted. VS monitored closely q 4 hours. No significant abnormalities noted. Withdrawal symptoms were closely monitored. Patient presented with initial CIWA 7, presented with anxiety, agitation, facial flushing, and fine tremors. Denies S/I or H/I noted. Per patent, Ativan has been helping him with his withdrwal symptoms. Last CIWA 4. Compliant with care and treatment. PRN Toradol 30 mg IM was given at 0900 for generalized muscle aches and pains with help after 1 hour and at 1456 with help. Able to participate in group and therapy sessions despite his withdrawal symptoms. PPD administered to left forearm. No bleeding noted. To be read in 72 hours. Oral fluids encouraged. All needs met and attended. Will continue to monitor closely.
--- NOTE | 2016-12-11 19:30 | NUR ---
START OF SHIFT Patient is a 51 year old male admitted to [facility] on 12/10/16 for ETOH dependence.Pt is A/O X 4,FULL CODE,regular diet,allergic to Levofloxacin. Hx anxiety, depression, hypothyroidism, and psoriasis.Pt is anxious and restless,focused on taking his medications as early as possible.Assurance provided.Relaxation techniques encouraged.All safety measures in place per hospital policy. Bed locked and in lowest position, side rails up x2 and padded, call light within reach. Will continue to monitor.
[2016-12-11 20:00] VITALS: BP 141/81
[2016-12-11] MEDS: TRAZODONE 100 MG TABLET PO PRN (21:17)
--- NOTE | 2016-12-11 21:20 | NUR ---
PRN MEDS PRN TORADOL IM GIVEN FOR BACK PAIN 02/03.PRN TRAZODONE GIVEN ORDERED FOR C/O INSOMNIA.WILL MONITOR.
--- NOTE | 2016-12-11 22:20 | NUR ---
PRN F/U PT SEEN SLEEPING COMFORTABLY IN HIS BED.BREATHING IS EVEN AND NON LABORED.NO S/S OF DISTRESS NOTED.WILL CONTINUE TO MONITOR.
[2016-12-12] VITALS: BP 138/76
[2016-12-12] MEDS: KETOROLAC TROMETHAMINE 30 MG INJ IM PRN ×3 (03:44→16:04)
--- NOTE | 2016-12-12 03:47 | NUR ---
PRN MED PRN TORADOL IM GIVEN ORDERED FOR C/O BACK PAIN 02/03,PER PT REQUEST.WILL MONITOR.
[2016-12-12 04:00] VITALS: BP 129/85
--- NOTE | 2016-12-12 04:47 | NUR ---
PRN F/U PT VERBALIZES A DECREASE IN PAIN LEVEL 4/10.
[2016-12-12] MEDS: LEVOTHYROXINE SODIUM 25 MCG TABLET PO SCH (06:30)
--- NOTE | 2016-12-12 06:43 | NUR ---
END OF SHIFT Patient is a 51 year old male admitted to [facility] on 12/10/16 for ETOH dependence.Pt is A/O X 4,FULL CODE,regular diet,allergic to Levofloxacin. Hx anxiety, depression, hypothyroidism, and psoriasis.Pt slept 7 hrs,fluid intake was 1740 mls,voided x 2.PRN Toradol IM given x 2 for c/o back pain and was effective.All safety measures in place per hospital policy. Bed locked and in lowest position, side rails up x2 and padded, call light within reach. Will continue to monitor.
--- NOTE | 2016-12-12 07:20 | NUR ---
START OF SHIFT NOTE: Received report from steward/stewardess night nurse. Patient is a 51 year old male admitted 12-10-16 for ETOH dependence. Placed on a 5-day Ativan taper as ordered. Tolerating well. Pt is alert and oriented X4. Color good, skin warm and dry. Respirations even and unlabored. Resting in bed at this time. Safety precautions observed. Call light within reach. Will continue to monitor.
[2016-12-12] MEDS: ESCITALOPRAM OXALATE 10 MG TABLET PO SCH (08:17)
[2016-12-12] MEDS: THIAMINE HCL 100 MG TABLET PO SCH (08:17)
[2016-12-12] MEDS: FAMOTIDINE 20 MG TABLET PO SCH ×2 (08:17→20:53)
[2016-12-12] MEDS: MULTIVITAMINS,THERAPEUTIC TABLET PO SCH (08:17)
[2016-12-12] MEDS: GABAPENTIN 300 MG CAPSULE PO SCH ×3 (08:17→20:51)
[2016-12-12] MEDS: FOLIC ACID 1 MG TABLET PO SCH (08:17)
[2016-12-12 08:23] VITALS: BP 128/65
[2016-12-12] MEDS ORDERED: LORAZEPAM 1 MG TABLET PO SCH (09:00)
[2016-12-12] MEDS: ACETAMINOPHEN 325 MG TABLET PO PRN ×2 (10:09→16:02)
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
--- NOTE | 2016-12-12 11:12 | NUR ---
Pt states pain 5/10 after Toradol prn. Also states headache improved after Tylenol prn.
[2016-12-12 12:00] VITALS: BP 116/70
--- NOTE | 2016-12-12 14:50 | NUR ---
Therapist prompted client about group times. Client stated, "I will be at all groups. I always go to groups."
[2016-12-12] MEDS: LORAZEPAM 1 MG TABLET PO SCH ×2 (15:01→20:51)
[2016-12-12 16:00] VITALS: BP 128/86
--- NOTE | 2016-12-12 16:06 | NUR ---
Toradol 30mg IM prn for pain 8/10 generalized body pain. Tylenol 650mg po prn for headache.
--- NOTE | 2016-12-12 18:42 | NUR ---
END OF SHIFT NOTE: Report given to maintenance mechanic 2nd shift nurse. Patient is a 51 year old male admitted 12-10-16 for ETOH dependence. Placed on a 5-day Ativan taper as ordered. Tolerating well. Pt is alert and oriented X4. Color good, skin warm and dry. Respirations even and unlabored. Vital signs have remained stable throughout shift. Last CIWA 5 @ 1500. Pt received Toradol 30mg IM prn X2 @ 1000 and 1600. Also received Tylenol 650mg po prn @ 1000 and 1600. Safety precautions observed. Call light within reach.
[2016-12-12] MEDS: CLOBETASOL PROPIONATE 0.05% OINT 15 GM TUBE TP SCH (18:45)
[2016-12-12 20:00] VITALS: BP 143/83
--- NOTE | 2016-12-12 20:09 | NUR ---
START OF SHIFT NOTE Pt is a 51 y/o male admitted for ETOH dependence. Pt has an allergy to Levofloxacin and reported a PMH of hypothyroid, anxiety, depression and psoriasis. Per day shift nurse pt was placed on a 5 day Ativan taper and is tolerating medication well , with no s/e or a/r reported. Pt received Toradol 1 ML PRN x 2, Tylenol 650 mg PO PRN x 2 during the day shift. Last CIWA: 5 (1999). At this time pt has just approached the nurse's station requesting his smoke pass. Pt' skin is dry and intact. No tremors noted. Pt stated " I'll take my medication closer to 10 with my shot." Pt was encouraged to notify staff of any changes in condition or of any concerns. Pt verbalized an understanding. Will continue to monitor.
[2016-12-12] MEDS: TRAZODONE 100 MG TABLET PO PRN (20:52)
--- NOTE | 2016-12-12 20:52 | NUR ---
TRAZODONE PRN ADMINISTRATION Pt reported " Can I get my sleeper now too?" Trazodone 150 mg PO PRN was given. Pt was encouraged to notify staff of any changes in condition or of any concerns. Pt verbalized an understanding. All safety measures in place. Will monitor effectiveness.
--- NOTE | 2016-12-12 21:52 | NUR ---
TRAZODONE PRN REASSESSMENT Pt is sleep in bed with no signs of discomfort/distress noted. PRN effective. Will continue to monitor.
--- NOTE | 2016-12-13 | NUR ---
VITALS REFUSED/ CIWA DEFERRED Pt refused to have vitals taken at this time. Pt was encouraged x 3 with risks and benefits explained, but the pt still declined. CIWA assessment deferred until pt is awake. All safety measures in place. Will continue to monitor. Addendum: 12/13/16 at 0532 by ESDRAS LEONARDO LVN Amended: Links added.
[2016-12-13] MEDS: KETOROLAC TROMETHAMINE 30 MG INJ IM PRN ×2 (02:08→08:23)
--- NOTE | 2016-12-13 02:08 | NUR ---
TORADOL PRN ADMINISTRATION Pt reported gluteal pain of 8/10. Toradol 1 ml PRN given. Will monitor for effectiveness.
[2016-12-13] MEDS: ACETAMINOPHEN 325 MG TABLET PO PRN ×3 (02:56→15:23)
--- NOTE | 2016-12-13 02:56 | NUR ---
TORADOL PRN REASSESSMENT / TYLENOL PRN ADMINISTRATION Pt reported " I need some Tylenol. The pain isn't going away." Tylenol 650 mg PO PRN was given. Will monitor for effectiveness.
--- NOTE | 2016-12-13 03:56 | NUR ---
TYLENOL PRN REASSESSMENT Pt is asleep at this time. Reassessment deferred until pt is awake.
--- NOTE | 2016-12-13 04:00 | NUR ---
VITALS REFUSED / CIWA DEFERRED Pt refused to have vitals taken at this time. Pt was encouraged x 3 with risks and benefits explained, but the pt still declined. CIWA assessment deferred until pt is awake. All safety measures in place. Will continue to monitor. Addendum: 12/13/16 at 0534 by ESDRAS LEONARDO LVN Amended: Links added.
--- NOTE | 2016-12-13 06:00 | NUR ---
TYLENOL PRN REASSESSMENT Pt stated " I don't know what's going on. This pain just won't go away. I can wait until my next shot." Will endorse to the oncoming nurse. PRN ineffective.
[2016-12-13] MEDS: LEVOTHYROXINE SODIUM 25 MCG TABLET PO SCH (06:46)
--- NOTE | 2016-12-13 07:29 | NUR ---
END OF SHIFT NOTE Pt is a 51 y/o male admitted for ETOH dependence. Pt has an allergy to Levofloxacin and reported a PMH of hypothyroid, anxiety, depression and psoriasis. Pt continues on a 5 day Ativan taper and is tolerating medication well , with no s/e or a/r reported. Pt received Toradol 1 ML PRN, Tylenol 650 mg PO PRN, and Trazodone 150 mg PO PRN during the shift. Last CIWA: 1 (1999). Pt slept for a total of 5 hours. All safety measures in place. Will endorse to the oncoming nurse.
[2016-12-13 08:00] VITALS: BP 128/86
[2016-12-13] MEDS: MULTIVITAMINS,THERAPEUTIC TABLET PO SCH (08:20)
[2016-12-13] MEDS: FAMOTIDINE 20 MG TABLET PO SCH ×2 (08:20→21:10)
[2016-12-13] MEDS: FOLIC ACID 1 MG TABLET PO SCH (08:20)
[2016-12-13] MEDS: GABAPENTIN 300 MG CAPSULE PO SCH ×3 (08:20→21:10)
[2016-12-13] MEDS: ESCITALOPRAM OXALATE 10 MG TABLET PO SCH (08:20)
[2016-12-13] MEDS: THIAMINE HCL 100 MG TABLET PO SCH (08:20)
[2016-12-13] MEDS: CLOBETASOL PROPIONATE 0.05% OINT 15 GM TUBE TP SCH ×2 (08:23→17:00)
--- NOTE | 2016-12-13 08:23 | NUR ---
PRN KETOROLAC IM INJECTION Patient complains of LLE pain and R arm pain. PRN ketorolac IM injection given. Will continue to monitor patient. Addendum: 12/13/16 at 1116 by BOY GARCIA RN Patient's pain level 8/10, also pain on R buttock
[2016-12-13] MEDS ORDERED: LORAZEPAM 1 MG TABLET PO SCH ×2 (09:00)
--- NOTE | 2016-12-13 09:04 | NUR ---
PRN TYLENOL Patient complains of pain 8/10 on LLE and R buttock.
--- NOTE | 2016-12-13 09:23 | NUR ---
REASSESSMENT KETOROLOC IM INJECTION Patient reports pain decreased to 6/10.
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
--- NOTE | 2016-12-13 10:04 | NUR ---
REASSESSMENT PRN TYLENOL Patient reports pain decreased to 6/10 pain level.
[2016-12-13] MEDS ORDERED: GABA-534 PO (11:05)
[2016-12-13] MEDS ORDERED: HYDR-3895 PO (11:05)
[2016-12-13] MEDS ORDERED: IBUP-1955 PO (11:05)
--- NOTE | 2016-12-13 12:30 | NUR ---
received report from day shift nurse nenita Keene is in stable condition at this time.
[2016-12-13 13:00] VITALS: BP 122/74
[2016-12-13 13:13] LABS: BASOPHILS % (AUTO) 0.4 % (0.0-2.0); EOSINOPHILS # (AUTO) 0.2 K/uL (0.0-0.7); EOSINOPHILS % (AUTO) 3.9 % (0.0-7.0); HEMATOCRIT 36.4 % (40-50); LYMPHOCYTES # (AUTO) 1.1 K/UL (0.8-4.8); LYMPHOCYTES % (AUTO) 26.1 % (20.5-51.5); MEAN CORPUSCULAR HEMOGLOBIN 30.8 UUG (27.0-31.0); MEAN CORPUSCULAR HGB CONC 33 g/dL (32.0-37.0); MEAN CORPUSCULAR VOLUME 93.2 FL (82.0-92.0); MONOCYTES # (AUTO) 0.4 K/UL (0.1-1.30); MONOCYTES % (AUTO) 8.7 % (0.0-11.0); NEUTROPHILS # (AUTO) 2.6 K/UL (1.8-8.9); NEUTROPHILS % (AUTO) 60.9 % (38.5-71.5); PLATELET COUNT (AUTO) 93 K/UL (150-450); WHITE BLOOD COUNT (AUTO) 4.3 K/UL (4.0-11.2)
[2016-12-13 13:42] LABS: EOSINOPHILS % (MANUAL) 3 % (0-8); LYMPHOCYTES % (MANUAL) 35 % (20-40); MONOCYTES % (MANUAL) 6 % (2-10); NEUTROPHILS % (MANUAL) 56 % (42-75)
[2016-12-13 14:19] LABS: BILIRUBIN,DIRECT 0.1 mg/dL (0.0-0.2); BILIRUBIN,TOTAL 0.5 mg/dL (0.2-1.0); TOTAL PROTEIN, SERUM 7.1 g/dL (6.4-8.2)
[2016-12-13 15:02] LABS: *AMPHETAMINE, URINE NEGATIVE (NEGATIVE); *BARBITURATE, URINE NEGATIVE (NEGATIVE); *CANNABINOID, URINE NEGATIVE (NEGATIVE); *COCCAINE, URINE NEGATIVE (NEGATIVE); *OPIATE, URINE NEGATIVE (NEGATIVE); *PHENCYCLIDINE SCREEN,URINE NEGATIVE (NEGATIVE)
[2016-12-13] MEDS: IBUPROFEN 600 MG TABLET PO PRN (15:23)
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
--- NOTE | 2016-12-13 17:10 | NUR ---
prn maalox: was administered for heartburn,
[2016-12-13 17:14] VITALS: BP 128/86
--- NOTE | 2016-12-13 18:47 | NUR ---
end of shift note: pt is in stable condition and admitted to [facility] for etoh withdrawal/dependence. pt's last ciwa 3. pt has orders to administered tylenol with either motrin or toradol. per md it is ok to give. pt is set to discharge tomorrow. will endorse pt to manager strategic development nurse. pt received maalox for heartburn and stated medication is effective.
--- NOTE | 2016-12-13 19:15 | NUR ---
Start of Shift Note: Patient is a 51 y/o male admitted on 12/10/16 for ETOH dependence. Patient reports PMHx of Hypothyroidism, Anxiety, Depression & Psoriasis. No seizure history noted. Patient is on a regular diet with allergies to Levaquin. Full Code status. Patient completed his Ativan taper and he is scheduled to be discharge tomorrow. Urine drug screen collected and resulted. Last CIWA is 3. Pt was given PRN Toradol during day shift. Patient is alert & oriented x4. Patient is ambulatory with a steady gait. No shortness of breath noted. Respiration even & unlabored. Abdomen soft & non-distended. No nausea/vomiting noted. Patient complaining of 8/10 right buttock pain and anxiety. Patient denies hallucinations. No hand tremors noted. Safety precautions are in place. Bed locked in lowest position. Both side rails up. Call light within pt's reach. Will continue to monitor patient.
[2016-12-13 20:00] VITALS: BP 139/95
[2016-12-13] MEDS ORDERED: KETOROLAC TROMETHAMINE 30 MG INJ IM ONE (21:00)
[2016-12-13] MEDS: TRAZODONE 100 MG TABLET PO PRN (21:10)
--- NOTE | 2016-12-14 | NUR ---
Vitals/Ciwa deferred Patient refused vitals at this time. Patient is asleep in bed and appears comfortable. No shortness of breath noted. Respiration even & unlabored. Unable to assess CIWA at this time. Will continue to monitor patient. Addendum: 12/14/16 at 0127 by LEONIE RAIN RN Amended: Links added.
[2016-12-14] MEDS: IBUPROFEN 600 MG TABLET PO PRN (02:54)
--- NOTE | 2016-12-14 02:54 | NUR ---
PRN Motrin and Vistaril Patient complains of moderate headache and slight anxiety. PRN Vistaril & MOtrin administered as ordered. Will continue to monitor patient.
--- NOTE | 2016-12-14 03:54 | NUR ---
PRN Reassessment Patient verbalized relief from headache and decrease in anxiety. Patient lying in bed and appears comfortable. Will continue to monitor patient.
[2016-12-14 04:00] VITALS: BP 126/82
[2016-12-14] MEDS: LEVOTHYROXINE SODIUM 25 MCG TABLET PO SCH (06:05)
[2016-12-14] MEDS: ACETAMINOPHEN 325 MG TABLET PO PRN (06:38)
--- NOTE | 2016-12-14 06:53 | NUR ---
End of Shift Note: Patient had un uneventful night. Patient completed his Ativan taper and he is scheduled to be discharge today. Urine drug screen collected and resulted. Patient remained compliant with medications & treatment plan. Patient received PRN Trazodone for sleep and Motrin for headache & Vistaril for anxiety as ordered during my shift and was effective. last Ciwa is 2. Patient remained stable and Vitals remains WNL. Patient awake at this time with no s/s of distress noted. Patient slept for a total of 4 hours. Patient consumed 1230 ml of fluids and Voided 4x. 1x bowel movement noted. Encouraged pt to increase fluid intake. All needs attended & met. Safety measures in place. Will endorse pt to day shift nurse.
--- NOTE | 2016-12-14 07:15 | NUR ---
start of shift note: received pt from shift stacker nurse, pt is in stable condition at this time, pt is admitted to [facility] for etoh withdrawal/dependence. pt will be discharging today will assist pt in discharging and will continue to monitor pt for any changes. pts last ciwa 2.
[2016-12-14] MEDS: CLOBETASOL PROPIONATE 0.05% OINT 15 GM TUBE TP SCH (08:23)
[2016-12-14] MEDS: MULTIVITAMINS,THERAPEUTIC TABLET PO SCH (08:32)
[2016-12-14] MEDS: FAMOTIDINE 20 MG TABLET PO SCH (08:32)
[2016-12-14] MEDS: THIAMINE HCL 100 MG TABLET PO SCH (08:32)
[2016-12-14] MEDS: GABAPENTIN 300 MG CAPSULE PO SCH (08:32)
[2016-12-14] MEDS: ESCITALOPRAM OXALATE 10 MG TABLET PO SCH (08:32)
[2016-12-14] MEDS: FOLIC ACID 1 MG TABLET PO SCH (08:32)
[2016-12-14] MEDS ORDERED: LORAZEPAM 1 MG TABLET PO SCH ×2 (09:00)
--- NOTE | 2016-12-14 09:25 | NUR ---
discharge note: pt left the unit in stable condition, no s/s of withdrawal/pain/or discomfort. pt teaching administered and pt verbalized understanding. pt will be transferred to [facility] via private car.
== END 2016-12-14 09:25 | disposition other institution (70) | DRG 895 ==
LOC: SRC 14:08
PROVIDERS: ADMIT Internal Medicine; ATTEND Internal Medicine
PROC: HZ2ZZZZ Detoxification Services for Substance Abuse Treatment (ICD-10-PCS; principal; 2016-12-10)
PROC: HZ41ZZZ Group Counseling for Substance Abuse Treatment, Behavioral (ICD-10-PCS; 2016-12-11)
PROC: HZ31ZZZ Individual Counseling for Substance Abuse Treatment, Behavioral (ICD-10-PCS; 2016-12-12)
DX: F10.230 Alcohol dependence with withdrawal, uncomplicated (principal); F33.2 Major depressive disorder, recurrent severe without psychotic features; F13.230 Sedative, hypnotic or anxiolytic dependence with withdrawal, uncomplicated; Y90.9 Presence of alcohol in blood, level not specified; E03.9 Hypothyroidism, unspecified; Z98.84 Bariatric surgery status; Z90.49 Acquired absence of other specified parts of digestive tract; Z79.899 Other long term (current) drug therapy; D69.6 Thrombocytopenia, unspecified; D53.9 Nutritional anemia, unspecified; F41.9 Anxiety disorder, unspecified
CPT/HCPCS: 36415; 70030-TC; 80307; 80346; 82746; 83735; 85025; 86580; 86592; 86705; 86803; 87340; 87806; G0480; J1885; J3411